=== PATIENT | female | born 1975 | race Two or more races ===

== ENCOUNTER 2023-09-27 | Emergency (ER) | payer BC, OTHER ==
[~2023-09-27] VITALS: Ht 170.2 cm; Wt 90.5 kg
[2023-09-27 00:14] VITALS: BP 116/73; PULSE 67; RESP 16; O2SAT 97
== END 2023-09-27 02:42 | disposition left against medical advice (07) ==
LOC: ER
DX: R10.2 Pelvic and perineal pain (principal); Z53.21 Procedure and treatment not carried out due to patient leaving prior to being seen by health care provider